=== PATIENT | male | born 2000 | race Caucasian/White ===

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

== ENCOUNTER 2020-08-27 14:52 | Emergency (ER) | payer OTHER ==
[~2020-08-27] VITALS: Ht 177.8 cm; Wt 77.2 kg
[2020-08-27 14:55] VITALS: BP 144/92
[2020-08-27] MEDS ORDERED: LIDOCAINE-MPF 1%, 5ML INFIL ONE (15:00)
[2020-08-27] MEDS ORDERED: DIPH,PERTUSS(ACELL),TET VAC/PF 0.5 ML IM-VACC ONE ×2 (15:00→16:15)
--- NOTE | 2020-08-27 16:05 | NUR ---
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
[2020-08-27] MEDS ORDERED: LIDOCAINE-MPF 1%, 2ML ONE (16:15)
[2020-08-27] MEDS ORDERED: NEOSPORIN OINT. PKT 1 PACKET ONE (17:20)
--- NOTE | 2020-08-27 17:42 | NUR ---
Patient given discharge instructions and they have confirmed that they understand the instructions. Patient ambulatory with steady gait.
== END 2020-08-27 17:43 | disposition home or self-care (01) ==
LOC: ED 17:15
DX: S61.112A Laceration without foreign body of left thumb with damage to nail, initial encounter (principal); W26.8XXA Contact with other sharp object(s), not elsewhere classified, initial encounter; Y93.89 Activity, other specified; Y92.89 Other specified places as the place of occurrence of the external cause; Y99.0 Civilian activity done for income or pay
CPT/HCPCS: 12041; 12042; 90471; 90715; 99284